=== PATIENT | male | born 1985 | race Caucasian/White ===

== ENCOUNTER 2020-03-07 08:07 | Emergency (ER) | payer SELFPAY ==
[~2020-03-07] VITALS: Ht 167.6 cm; Wt 78.5 kg
[2020-03-07 08:19] VITALS: Ht 167.6 cm; Wt 78.5 kg
[2020-03-07 09:39] LABS: microscopic required? NO
[2020-03-07 09:45] LABS: BASOPHIL % 0.3 % (0-2); PLATELET COUNT 245 x10^3mcL (130-400); RED CELL DISTRIBUTION WIDTH 12.4 % (11.5-14.5)
[2020-03-07 09:48] LABS: ALBUMIN 3.9 g/dL (3.4-5.0); ALKALINE PHOSPHATASE 68 U/L (46-116); ALT/SGPT 22 U/L (16-63); AST/SGOT 2 U/L (15-37); BILIRUBIN TOTAL 0.26 mg/dL (0.20-1.00); CALCIUM 8.8 mg/dL (8.5-10.1); CARBON DIOXIDE 26.9 mmol/L (21-32); CHLORIDE SERUM 103 mmol/L (98-107); CHOLESTEROL 138 mg/dL (<200); CREATININE SERUM 0.7 mg/dL (0.7-1.3); GFR1 > 60 mL/min; GLUCOSE SERUM 102 mg/dL (74-106); POTASSIUM SERUM 4.1 mmol/L (3.5-5.1); SODIUM SERUM 137 mmol/L (136-145); TOTAL PROTEIN, SERUM 7.3 g/dL (6.4-8.2)
[2020-03-07 09:49] LABS: CHOLESTEROL/HDL RATIO 4.5; HDL CHOLESTEROL 31 mg/dL (40-60); TRIGLYCERIDES 259 mg/dL (<150)
[2020-03-07 10:15] LABS: urine erythrocyte NEGATIVE (NEGATIVE)
[2020-03-07 12:52] VITALS: BP 120/82
== END 2020-03-07 12:52 | disposition home or self-care (01) ==
LOC: ED 08:07
PROVIDERS: Specialist
DX: K76.0 Fatty (change of) liver, not elsewhere classified (principal)
CPT/HCPCS: J1885; J3010; J3490; J7030; Q0092